=== PATIENT | male | born 1950 | race Caucasian/White ===

== ENCOUNTER 2017-12-30 11:15 | Observation (INO) | payer OTHER ==
--- OUTSIDE RECORDS SUMMARY | 2017-12-30 11:17 | XMS REPORT | Clinical Summary ---
:1950 Author Organization [facility] Address [address] [place] [address] Care Team Providers Name Role Phone Mg Starkey MD Primary Care Provider Allergies Active Allergy Reactions Severity Noted Date Comments Hydrocodone Itching Low 08/13/2016 Current Medications Prescription Sig. Disp. Refills Start Date End Date Status ALPRAZolam (XANAX) 0.5 MG Take 0.5 mg by Active tablet mouth nightly as needed for anxiety. rosuvastatin (CRESTOR) 10 Take 20 mg by Active MG tablet mouth daily. apixaban (ELIQUIS) 5 mg Take by mouth 2 Active tablet (two) times a day. tamsulosin (FLOMAX) 0.4 mg Take 0.4 mg by Active capsule,extended release mouth daily. 24hr cetirizine (ZyrTEC) 10 MG Chew 10 mg daily. Active chewable tablet montelukast (SINGULAIR) 10 Take 10 mg by Active mg tablet mouth nightly. zolpidem (AMBIEN) 10 mg Take 10 mg by Active tablet mouth nightly as needed for sleep. benzonatate (TESSALON) 200 Take 200 mg by Active MG capsule mouth 2 (two) times a day as needed for cough. fluticasone (FLONASE) 50 as needed. 06/16/2016 Active mcg/actuation nasal spray methylPREDNISolone (MEDROL as needed. 07/08/2016 Active DOSEPACK) 4 mg tablet ASPIRIN/ACETAMINOPHEN/CAFFE Take by mouth as Active INE (EXCEDRIN MIGRAINE needed. ORAL) sildenafil (VIAGRA) 50 MG Take 50 mg by Active tablet mouth as needed for erectile dysfunction. Active Problems Problem Noted Date Essential hypertension 08/13/2016 Pure hypercholesterolemia 08/13/2016 Hyperlipidemia, unspecified 08/12/2016 Atrial fibrillation 08/12/2016 Family History Medical History Relation Name Comments Heart attack Father Breast cancer Mother Heart attack Paternal Uncle Relation Name Status Comments Father Mother Paternal Uncle Social History Tobacco Use Types Packs/Day Years Used Date Never Smoker Smokeless Tobacco: Never Used Alcohol Use Drinks/Week oz/Week Comments Yes moderate Sex Assigned at Date Recorded Not on file Last Filed Vital Signs Not on file Plan of Treatment Health Maintenance Due Date Last Done Comments COLONOSCOPY 2000 SHINGRIX VACCINE (#1) 2000 ZOSTER VACCINE 2010 PNEUMOCOCCAL POLYSACCHARIDE VACCINE AGE 65 AND OVER 2015 PNEUMOCOCCAL-13 2015 INFLUENZA VACCINE 04/07/2018 Results Not on fileafter 12/29/2016 Insurance Payer Benefit Plan / Group Subscriber ID Type Phone Address MEDICARE MEDICARE PART A AND B xxxxxxxxxx Medicare [place], [place] AETNA AETNA HMO,POS,EPO, MC/EC xxxxxxxxxx HMO [phone] [address]
--- NOTE | 2017-12-30 12:05 | RAD REPORT ---
EXAM DESCRIPTION: CT - Ct Stroke Brain Wo Cont - 12/30/2017 11:55 am CLINICAL HISTORY: Blurred vision and right facial droop COMPARISON: September 2017 TECHNIQUE: Computed axial tomography of the head was obtained. IV contrast was not requested. All CT scans are performed using dose optimization technique as appropriate and may include automated exposure control or mA/KV adjustment according to patient size. FINDINGS: An intracranial bleed is not seen . The ventricles are normal in caliber. No extra-axial fluid collection is noted. Fluid within the sinuses/ mastoids is not seen. IMPRESSION: No acute intracranial abnormality is seen. If patient's symptoms persist MRI of the bra in would be recommended. The exam was discussed with Dr Lopez in the Emergency Room at approximately 11:50 a.m. on December 30 018
[2017-12-30 12:10] LABS: Absolute Lymphocytes (CBC) 1.2 K/uL (0.7-4.9); Absolute Monocytes 0.6 K/uL (0.1-1.3); Absolute Neutrophil 4.2 K/uL (1.8-8.0); Basophils % 1.3 % (0-1.3); Eosinophils % 1.5 % (0-4.4); Hematocrit 47.5 % (39.6-49.0); Lymphocytes % 19.3 % (15.3-44.8); MCH 32.5 pg (27.0-35.0); MCV 95.5 fL (80-100); MPV 9.1 fL (7.6-11.3); Monocytes % 9.4 % (3.3-12.3); RBC Red Blood Cell Count 4.97 M/uL (4.33-5.43)
[2017-12-30 12:18] LABS: Protime INR 1.03
--- NOTE | 2017-12-30 12:47 | RAD REPORT ---
EXAM DESCRIPTION: MRI - Brain Wo Cont - 12/30/2017 12:41 pm CLINICAL HISTORY: Blurred vision, CVA symptoms COMPARISON: CT head December 30 TECHNIQUE: Sagittal T1-weighted images were obtained along with axial PD, heavily T2-weighted and T2 -FLAIR images. Axial DWI and ADC mapping sequences were also obtained along with coronal heavily T2-w eighted images. FINDINGS: No intracranial hemorrhage, mass or acute infarction. There is no edema or shift of midlin e structures. No extra-axial fluid collections. Carlos-matter/white matter junction is preserved. Signa l voids are seen as a normal finding in the major intracranial vessels. Patient has minimal atrophy a nd very little identifiable chronic ischemic change. Ventricles are normal. No globe or orbital aileen nt acute finding seen. Mastoid air cells and paranasal sinuses are clear. IMPRESSION: No acute infarction changes present. No hemorrhage, mass or acute intracranial finding. Minimal atrophy and chronic ischemic change.
[2017-12-30] MEDS ORDERED: ASPIRIN 81 MG CHEWABLE TABLET ONE (13:13)
--- NOTE | 2017-12-30 13:15 | RAD REPORT ---
EXAM DESCRIPTION: RAD - Chest Single View - 12/30/2017 12:11 pm CLINICAL HISTORY: Code stroke chest film COMPARISON: September 16 TECHNIQUE: AP portable chest image was obtained 1146 hours . FINDINGS: No failure, infiltrate or mass. Lung markings are similar to the comparison. Heart and vas culature are normal. No measurable pleural effusion and no pneumothorax. No gross bony abnormality se en. No acute aortic findings suspected. IMPRESSION: No acute cardiopulmonary process. No significant change from comparison.
--- NOTE | 2017-12-30 13:37 | EKG ---
Test Date: 2017-12-30 Test Time: 11:54:30 Central Office Technician: LEI MEASUREMENT RESULTS: Intervals: Rate: 84 MN: 178 QRSD: 106 QT: 418 QTc: 493 [place]: P: 29 MN: 178 QRS: -25 T: 45 INTERPRETIVE STATEMENTS: Normal sinus rhythm Prolonged QT Abnormal ECG Compared to ECG 09/16/2017 14:02:02 Prolonged QT interval now present Left-axis deviation no longer present ST (T wave) deviation no longer present Electronically Signed On 12-30-17 13:36:51 CDT by Ric Hayden
[2017-12-30 13:39] LABS: Urine Blood TRACE (NEG); Urine Glucose NEGATIVE (NEG); Urine Protein NEGATIVE (NEG)
--- NOTE | 2017-12-30 14:06 | ER ---
Nurse's Notes [facility] Name: Chaz Lombardo Age: 67 yrs Sex: Male : 1950 Arrival Date: 12/30/2017 Time: 11:18 Bed 2 Private MD: Diagnosis: Altered mental status, unspecified;Facial weakness;Contusion of unspecified part of head Presentation: 12/30 11:24 Presenting complaint: Patient states: "I believe I may have fallen and hit my head 2 aj days ago because I have a knot on my head and my vision is blurred." Patient ambulated to triage with steady gait. Family member reports patient appears unsteady and has been slightly disoriented. Last seen normal on Thursday. 11:24 Method Of Arrival: Ambulatory aj 11:24 Acuity: ADAIR 2 aj 11:28 Transition of care: patient was not received from another setting of care. An acute aj neurological deficit is present. The patient has been moved to a treatment area. Onset of symptoms was December 28, 2017. Initial Sepsis Screen: Does the patient meet any 2 criteria? No. Patient's initial sepsis screen is negative. Does the patient have a suspected source of infection? No. Patient's initial sepsis screen is negative. Care prior to arrival: None. 12:57 Pre-hospital glucose is not applicable to this patient. Triage Assessment: 11:30 The onset of the patients symptoms was more than six hours ago. General: Appears in no aj apparent distress. comfortable, Behavior is cooperative, drowsy. Pain: Denies pain. Neuro: Level of Consciousness is awake, obeys commands, confused, Oriented to person, place, situation, Moves all extremities. Gait is unsteady, Speech is slurred, Facial symmetry appears normal, Reports blurred vision. Respiratory: Airway is patent Respiratory effort is even, unlabored, Respiratory pattern is regular, symmetrical. Derm: Skin is intact, is healthy with good turgor, Skin is pink, warm \\T\\ dry. normal. Stroke Activation: Symptom onset > 6 hours Physician: Stroke Attending; Name: ; Notified At: ; Arrived At: Physician: Chief Stroke Resident; Name: ; Notified At: ; Arrived At: Physician: Stroke Resident; Name: ; Notified At: ; Arrived At: Physician: ED Attending; Name: ; Notified At: ; Arrived At: Physician: ED Resident; Name: ; Notified At: ; Arrived At: Historical: - Allergies: 11:30 HYDROCODONE; aj - Home Meds: 11:30 Exforge 5-160 mg Oral tab 1 tab once daily [Active]; Crestor Oral [Active]; aspirin 81 aj mg Oral TbEC 1 tab once daily [Active]; - PMHx: 11:30 Anxiety; Diverticulitis; Hyperlipidemia; Hypertension; insomnia; aj - PSHx: 11:30 Abdominal SX; aj - Immunization history:: Adult Immunizations up to date. - Social history:: Smoking status: Patient/guardian denies using tobacco. - Family history:: not pertinent. - Hospitalizations: : No recent hospitalization is reported. Screenin:45 Abuse screen: Denies threats or abuse. Denies injuries from another. Nutritional hb screening: No deficits noted. Tuberculosis screening: No symptoms or risk factors identified. Fall Risk Total Ansari Fall Scale indicates Low Risk Score (25-44 pts). Fall prevention measures have been instituted. Side Rails Up X 2 Frequent Obs/Assesments occuring Family Present and informed to notify staff if they need to leave bedside As available Patient and Family Educated on Fall Prevention Program and strategies. Assessment: 11:31 Reassessment: Dr. Lopez at bedside. hb 11:36 Reassessment: BGL 94. hb 11:40 Reassessment: 18g RIGHT AC. hb 11:43 Reassessment: Code Stroke called, pt transported to CT via stretcher with JENNIFER Yip Rn. hb 11:43 T-PA (Activase) Screening: Indications: Definite evidence of stroke, ischemic, embolic, hb or hypertensive: Yes. Treatment will start within 4.5 hours onset of symptoms: No. Contraindications: Patient reports onset of signs and symptoms of stroke greater than 6 hours ago:. 11:50 General: Appears in no apparent distress. Behavior is calm, cooperative. Pain: Denies hb pain. Neuro: Level of Consciousness is awake, alert, obeys commands, Oriented to person, place, time, situation. Cardiovascular: Heart tones S1 S2 present Capillary refill < 3 seconds Patient's skin is warm and dry. Respiratory: Airway is patent Trachea midline Respiratory effort is even, unlabored, Respiratory pattern is regular, symmetrical, Breath sounds are clear bilaterally. GI: No signs and/or symptoms were reported involving the gastrointestinal system. : No signs and/or symptoms were reported regarding the genitourinary system. EENT: No signs and/or symptoms were reported regarding the EENT system. Derm: Skin is pink, warm \\T\\ dry. Musculoskeletal: No signs and/or symptoms reported regarding the musculoskeletal system. 12:45 Reassessment: Patient appears in no apparent distress at this time. No changes from previously documented assessment. Patient and/or family updated on plan of care and expected duration. Pain level reassessed. Patient is alert, oriented x 3, equal unlabored respirations, skin warm/dry/pink. 12:56 Patient has been NPO before screening. The patient is alert, and able to follow commands. The patient does not exhibit slurred or garbled speech. The patient is not exhibiting difficulty speaking. The patient does not exhibit difficulty understanding words. The patient is able to swallow own secretions with no drooling or need for suction. Patient tolerated one teaspoon of water. No drooling, immediate coughing, gurgling, or clearing of the throat was noted. The patient tolerated 90mL of water. No drooling, immediate coughing, gurgling, or clearing of the throat was noted. The patient passed the bedside swallow screening. Oral medications may be given as ordered. Contact Physician for further diet orders. Provider notified of bedside swallow screening results: John Lopez MD. 15:31 Reassessment: Renata EDGE needs more time to get report. sv 16:07 Reassessment: Chelle EDGE to call back for report. sv Vital Signs: 11:30 BP 160 / 105; Pulse 89; Resp 16; Temp 98.8; Pulse Ox 96% on R/A; Weight 120.2 kg; aj Height 6 ft. 2 in. (187.96 cm); Pain 0/10; 13:38 BP 147 / 85; Pulse 75; Resp 14; Pulse Ox 96% ; sv 15:24 BP 129 / 79; Pulse 86; Resp 16; Pulse Ox 99% ; sv 11:30 Body Mass Index 34.02 (120.20 kg, 187.96 cm) aj NIH Stroke Scale Scores: 11:43 NIHSS Score: 1 ED Course: 11:18 Patient arrived in ED. as 11:26 Triage completed. aj 11:29 John Lopez MD is Attending Physician. rn 11:30 Arm band placed on left wrist. Patient placed in an exam room. aj 11:40 Inserted saline lock: 18 gauge in right antecubital area, using aseptic technique. hb Blood collected. 11:43 Jenn Mccarty, RN is Primary Nurse. hb 11:45 Patient has correct armband on for positive identification. Placed in gown. Bed in low hb position. Call light in reach. Side rails up X 1. 11:55 CT Stroke Brain w/o Contrast In Process Unspecified. EDMS 11:58 EKG done, by photo optics technician. reviewed by John Lopez MD. at1 12:10 X-ray completed. Portable x-ray completed in exam room. Patient tolerated procedure jb2 well. 12:11 Stroke CXR 1 View In Process Unspecified. EDMS 12:15 Patient moved to MRI via stretcher. em2 12:23 Brain Wo Cont MRI In Process Unspecified. EDMS 14:05 Soren Green MD is Hospitalizing Provider. rn 16:25 No provider procedures requiring assistance completed. Patient admitted, IV remains in sv place. intact. Administered Medications: 13:26 Drug: Aspirin Chewable Tablet 324 mg Route: PO; hb 15:27 Follow up: Response: No adverse reaction sv Point of Care Testing: Blood Glucose: 11:36 Blood Glucose: 94 mg/dL; hb Ranges: Outcome: 14:05 Decision to Hospitalize by Provider. rn 16:25 Admitted to Tele accompanied by harjeet, family with patient, via wheelchair, room 409, sv with chart, Report called to Seven EDGE 16:25 Condition: stable 16:25 Instructed on the need for admit. 16:29 Patient left the ED. sv NIH Stroke Scale - NIH Stroke Score Date: 12/30/2017 Time: 11:43 Total Score = 1 1a. Level of Consciousness (LOC) - 0(Alert) 1b. Level of Consciousness (LOC) (Year \\T\\ Age) - 0(Both) 1c. LOC Commands (Open \\T\\ Closes Eyes/[employer]) - 0(Both) 2. Best Gaze (Lateral Gaze Paresis) - 0(Normal) 3. Visual Field Loss - 0(No visual loss) 4. Facial Palsy - 1(Minor Paralysis) 5a. Left Arm: Motor (10-second hold) - 0(No drift) 5b. Right Arm: Motor (10-second hold) - 0(No drift) 6a. Left Leg: Motor (5-second hold - always test supine) - 0(No drift) 6b. Right Leg: Motor (5-second hold - always test supine) - 0(No drift) 7. Limb Ataxia (finger/nose \\T\\ heel/sneed - test with eyes open) - 0(Absent) 8. Sensory Loss (pinprick arms/legs/face) - 0(Normal) 9. Best Language: Aphasia (description/naming/reading) - 0(No aphasia) 10. Dysarthria (speech clarity - read or repeat words) - 0(Normal) 11. Extinction and Inattention (visual/tactile/auditory/spatial/personal) - 0(No abnormality) Initials: hb Signatures: Dispatcher [employer] Alicia Funk RN RN sv Myers, Amanda, RN RN aj Buechter, Jesse jbMarga Jones Roman, MD MD rn Montes, Enrique em2 Rosangela prabhakar, nuclear reactor engineer EKG Tat1 Jenn Mccarty RN RN hb
--- NOTE | 2017-12-30 14:06 | EDPHYS ---
Physician Documentation [facility] Name: Chaz Lombardo Age: 67 yrs Sex: Male : 1950 Arrival Date: 12/30/2017 Time: 11:18 Bed 2 Private MD: ED Physician John Lopez HPI: 12/30 12:07 This 67 yrs old Male presents to ER via Ambulatory with complaints of Blurred rn Vision. 12:07 The patient presents with dizziness, feeling off balance. Onset: The symptoms/episode rn began/occurred yesterday. Associated signs and symptoms: Pertinent positives: ataxia, blurred vision, Pertinent negatives: abdominal pain, focal weakness, headache, seizure, shortness of breath, syncope, tingling, vomiting. Severity of symptoms: At their worst the symptoms were mild in the emergency department the symptoms are unchanged. The patient has not experienced similar symptoms in the past. Reports thinks hit his head recently, unsure when, reports dizziness, feels off balance, trouble remembering details, no vomiting/chest pain/abd pain. According to family, started sometime yesterday vs Thursday. . Historical: - Allergies: 11:30 HYDROCODONE; aj - Home Meds: 11:30 Exforge 5-160 mg Oral tab 1 tab once daily [Active]; Crestor Oral [Active]; aspirin 81 aj mg Oral TbEC 1 tab once daily [Active]; - PMHx: 11:30 Anxiety; Diverticulitis; Hyperlipidemia; Hypertension; insomnia; aj - PSHx: 11:30 Abdominal SX; aj - Immunization history:: Adult Immunizations up to date. - Social history:: Smoking status: Patient/guardian denies using tobacco. - Family history:: not pertinent. - Hospitalizations: : No recent hospitalization is reported. ROS: 12:07 Constitutional: Negative for fever, chills, and weight loss, Eyes: Negative for injury, rn pain, redness, and discharge, Neck: Negative for injury, pain, and swelling, Cardiovascular: Negative for chest pain, palpitations, and edema, Respiratory: Negative for shortness of breath, cough, wheezing, and pleuritic chest pain, Abdomen/GI: Negative for abdominal pain, nausea, vomiting, diarrhea, and constipation, Back: Negative for injury and pain, MS/Extremity: Negative for injury and deformity, Skin: Negative for injury, rash, and discoloration, Neuro: Negative for headache, numbness, tingling, and seizure. Exam: 12:07 Constitutional: This is a well developed, well nourished patient who is awake, alert, rn and in no acute distress. Head/Face: Normocephalic, atraumatic. Eyes: Pupils equal round and reactive to light, extra-ocular motions intact. Lids and lashes normal. Conjunctiva and sclera are non-icteric and not injected. Cornea within normal limits. Periorbital areas with no swelling, redness, or edema. ENT: Nares patent. No nasal discharge, no septal abnormalities noted. Oropharynx with no redness, swelling, or masses, exudates, or evidence of obstruction, uvula midline. Mucous membranes moist. Neck: Trachea midline, no thyromegaly or masses palpated, and no cervical lymphadenopathy. Supple, full range of motion without nuchal rigidity, or vertebral point tenderness. No Meningismus. Cardiovascular: Regular rate and rhythm with a normal S1 and S2. No gallops, murmurs, or rubs. Normal PMI, no JVD. No pulse deficits. Respiratory: Lungs have equal breath sounds bilaterally, clear to auscultation and percussion. No rales, rhonchi or wheezes noted. No increased work of breathing, no retractions or nasal flaring. Abdomen/GI: Soft, non-tender, with normal bowel sounds. No distension or tympany. No guarding or rebound. No evidence of tenderness throughout. MS/ Extremity: Pulses equal, no cyanosis. Neurovascular intact. Full, normal range of motion. Equal circumference. Neuro: Awake and alert, GCS 15, oriented to person, place, time. + mild right lower facial droop, upper face not involved. Motor strength 5/5 in all extremities. Sensory grossly intact. Cerebellar exam normal. Wide based gait, does not require assistance to walk. Vital Signs: 11:30 BP 160 / 105; Pulse 89; Resp 16; Temp 98.8; Pulse Ox 96% on R/A; Weight 120.2 kg; aj Height 6 ft. 2 in. (187.96 cm); Pain 0/10; 13:38 BP 147 / 85; Pulse 75; Resp 14; Pulse Ox 96% ; sv 15:24 BP 129 / 79; Pulse 86; Resp 16; Pulse Ox 99% ; sv 11:30 Body Mass Index 34.02 (120.20 kg, 187.96 cm) aj NIH Stroke Scale Scores: 11:43 NIHSS Score: 1 hb MDM: 11:29 Patient medically screened. rn 11:46 ED course: Family unsure of onset, patient reports thinks hit head yesterday or day rn before, there was a female with patient yesterday, family called her, she states was acting confused, had walking difficulty, and blurred vision yesterday. Not TPA candidate due to onset of symptoms yesterday, as well as trauma involved. . 11:50 ED course: NIH scale of 1 for right lower facial droop. . rn 14:04 Differential diagnosis: CVA, hypovolemia, idiopathic dizziness, TIA, xanax/ambien rn overdose, TIA. Data reviewed: vital signs, nurses notes, lab test result(s), EKG, radiologic studies, CT scan, MRI, and as a result, I will admit patient. Counseling: I had a detailed discussion with the patient and/or guardian regarding: the historical points, exam findings, and any diagnostic results supporting the discharge/admit diagnosis, lab results, radiology results, the need for further work-up and treatment in the hospital. Response to treatment: the patient's symptoms have mildly improved after treatment, and as a result, I will admit patient. Admission orders: after a detailed discussion of the patient's condition and case, the admit orders are written by me. 12/30 11:45 Order name: Troponin (emerg Dept Use Only); Complete Time: 13: 12/30 11:45 Order name: Basic Metabolic Panel; Complete Time: 13: 12/30 11:45 Order name: CBC with Diff; Complete Time: 12:11 12/30 11:45 Order name: Protime (+inr); Complete Time: 13:27 12/30 11:45 Order name: Ptt, Activated; Complete Time: 13:27 12/30 11:45 Order name: Urine Microscopic Only rn 12/30 11:45 Order name: CT Stroke Brain w/o Contrast; Complete Time: 12:11 12/30 11:45 Order name: Stroke CXR 1 View; Complete Time: 13:27 12/30 11:45 Order name: EKG; Complete Time: 11:46 rn 12/30 11:58 Order name: Brain Wo Cont MRI; Complete Time: 13:27 rn 12/30 13:24 Order name: Urine Dipstick--Ancillary (enter results) 2 12/30 13:46 Order name: Glucose, Ancillary Testing EDCA 12/30 11:45 Order name: Accucheck; Complete Time: 12:23 rn 12/30 11:45 Order name: Cardiac monitoring; Complete Time: 12: rn 12/30 11:45 Order name: EKG - Nurse/Tech; Complete Time: 12: rn 12/30 11:45 Order name: IV Saline Lock; Complete Time: 12: rn 12/30 11:45 Order name: Labs collected and sent; Complete Time: 12: rn 12/30 11:46 Order name: NPO; Complete Time: 12: rn 12/30 11:46 Order name: O2 Per Protocol; Complete Time: 12: rn 12/30 11:46 Order name: O2 Sat Monitoring; Complete Time: 12: rn 12/30 11:46 Order name: Stroke Swallow Screen; Complete Time: 12: rn 12/30 11:46 Order name: Urine Dipstick-Ancillary (obtain specimen); Complete Time: 14:22 rn Administered Medications: 13:26 Drug: Aspirin Chewable Tablet 324 mg Route: PO; hb 15:27 Follow up: Response: No adverse reaction sv Point of Care Testing: Blood Glucose: 11:36 Blood Glucose: 94 mg/dL; hb Ranges: Critical Glucose Levels:Adult <50 mg/dl or >400 mg/dl <40 mg/dl or >180 mg/dl Disposition: 12/30/17 14:05 Hospitalization ordered by Soren Green for Observation. Preliminary diagnosis are Altered mental status, unspecified, Facial weakness, Contusion of unspecified part of head. - Bed requested for Telemetry/MedSurg (observation). - Status is Observation. sv - Condition is Stable. - Problem is new. - Symptoms have improved. UTI on Admission? No NIH Stroke Scale - NIH Stroke Score Date: 12/30/2017 Time: 11:43 Total Score = 1 1a. Level of Consciousness (LOC) - 0(Alert) 1b. Level of Consciousness (LOC) (Year \T\ Age) - 0(Both) 1c. LOC Commands (Open \T\ Closes Eyes/Parts Cataloger) - 0(Both) 2. Best Gaze (Lateral Gaze Paresis) - 0(Normal) 3. Visual Field Loss - 0(No visual loss) 4. Facial Palsy - 1(Minor Paralysis) 5a. Left Arm: Motor (10-second hold) - 0(No drift) 5b. Right Arm: Motor (10-second hold) - 0(No drift) 6a. Left Leg: Motor (5-second hold - always test supine) - 0(No drift) 6b. Right Leg: Motor (5-second hold - always test supine) - 0(No drift) 7. Limb Ataxia (finger/nose \T\ heel/sneed - test with eyes open) - 0(Absent) 8. Sensory Loss (pinprick arms/legs/face) - 0(Normal) 9. Best Language: Aphasia (description/naming/reading) - 0(No aphasia) 10. Dysarthria (speech clarity - read or repeat words) - 0(Normal) 11. Extinction and Inattention (visual/tactile/auditory/spatial/personal) - 0(No abnormality) Initials: Signatures: Dispatcher [employer] EDMS Alicia Strauss RN Rosangela Ramírez RN RN aj Nieto, Roman, MD MD rn Baxter, Heather, RN RN hb Fitzgerald, Diane RN RN df Corrections: (The following items were deleted from the chart) 11:54 11:52 CT-STROKE BRAIN W/O CONTRAST+CT.RAD.BRZ ordered. EDMS EDMS
--- NOTE | 2017-12-30 15:00 | P.HP ---
Certification for Inpatient Patient admitted to: Observation With expected LOS: <2 Midnights Practitioner: I am a practitioner with admitting privileges, knowledge of patient current condition, hospital course, and medical plan of care. Services: Services provided to patient in accordance with Admission requirements found in Title 42 Section 412.3 of the Code of Federal Regulations Patient History Date of Service: 12/30/17 Reason for admission: acute encephalopathy History of Present Illness: Mr Lombardo is a 67 years old male with history of HTN, A.Fib s/p CV in the past , dyslipidemia, who according to his girlfriend, has been more confused for the last 4 days. He had a fall, and hit his head. He has a brise in his left forehead. Today he was complaining of blurred vision, dizziness, and he was more confused than yesterday. No history of fever or chills. He denied any extremity weakness or tingling. However, he has right facial drop with spare forehead. At my encounter he remain confused but cooperative. He had a similar episode 1 year ago. Allergies hydrocodone Allergy (Verified 09/16/17 21:04) Itching Home Medications: Acetaminophen [Pain Reliever] 500 mg PO PRN PRN 12/03/13 Alprazolam [Xanax*] 0.5 mg PO BID PRN 12/03/13 Ondansetron [Zofran (Odt)*] 4 mg PO Q6H PRN 12/03/13 Zolpidem Tartrate [Ambien*] 5 mg PO BEDTIME 12/03/13 Aspirin Tab [Reg Aspirin*] 325 mg PO DAILY #30 tab 12/06/13 Amlodipine/Valsartan [Exforge 5-160 mg Tablet] 1 tab PO DAILY 09/16/17 Montelukast [Singulair*] 1 tab PO DAILY 09/16/17 Rosuvastatin [Crestor*] 1 tab PO DAILY 09/16/17 Albuterol Sulfate [Proair Hfa] 8.5 gm IH TID PRN #1 hfa.aer.ad 09/17/17 Ciprofloxacin HCl [Cipro 500 MG Tablet] 500 mg PO BID #20 tab 09/17/17 Metronidazole [Flagyl] 500 mg PO Q8H #30 tablet 09/17/17 - Past Medical/Surgical History Diabetic: No -: HTN -: History of diverticulitis -: 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 He has 2 children. He is retired. - Family History Father -: Heart disease Mother -: Heart disease, Cancer - Social History Smoking Status: Never smoker Alcohol use: Yes CD- Drugs: No Caffeine use: Yes Physical Examination - Physical Exam General: Alert, In no apparent distress, Oriented x1 HEENT: Atraumatic, PERRLA, Mucous membr. moist/pink, EOMI, Sclerae nonicteric Neck: Supple, 2+ carotid pulse no bruit, No LAD, Without JVD or thyroid abnormality Respiratory: Clear to auscultation bilaterally, Normal air movement Cardiovascular: Regular rate/rhythm, Normal S1 S2 Gastrointestinal: Normal bowel sounds, No tenderness Musculoskeletal: No tenderness Integumentary: No rashes Neurological: Normal speech, Normal strength at 5/5 x4 extr, Normal tone, Normal affect Lymphatics: No axilla or inguinal lymphadenopathy - Studies Laboratory Data (last 24 hrs) 12/30/17 11:40: PT 12.2, INR 1.03, APTT 27.4 12/30/17 11:40: WBC 6.1, Hgb 16.2, Hct 47.5, Plt Count 230 12/30/17 11:40: Sodium 138, Potassium 4.0, BUN 10, Creatinine 0.98, Glucose 109 Assessment and Plan - Problems (Diagnosis) (1) Acute encephalopathy Current Visit: Yes Status: Acute (2) Atrial fibrillation Onset Date: 09/17/17 Current Visit: No Status: Chronic Qualifiers: Atrial fibrillation type: paroxysmal Qualified Code(s): I48.0 - Paroxysmal atrial fibrillation (3) History of TIA (transient ischemic attack) Current Visit: No Status: Chronic (4) Hyperlipidemia Onset Date: 09/17/17 Current Visit: No Status: Chronic Qualifiers: Hyperlipidemia type: unspecified Qualified Code(s): E78.5 - Hyperlipidemia , unspecified (5) Hypertension Onset Date: 09/17/17 Current Visit: No Status: Chronic Qualifiers: Hypertension type: essential hypertension Qualified Code(s): I10 - Essential (primary) hypertension - Plan Mr Lombardo will be admitted to the hospital due to acute encephalopathy, he is confused. Also right facial drop, which seems to be slightly better over the time. CT head and brain MRI showed no acute abnormalities. Differential diagnosis include TIA, seizure disorder. Will order ECHO, carotid doppler, consult Neurology. - Advance Directives Does patient have a Living Will: Yes Does patient have a Durable POA for Healthcare: Yes - Code Status/Comfort Care Code Status Assessed: Yes Code Status: Full Code
[2017-12-30 17:12] LABS: Urine Blood NEGATIVE (NEG); Urine Glucose NEGATIVE (NEG); Urine Protein NEGATIVE (NEG)
[2017-12-30 17:13] VITALS: BMI 34.0
[2017-12-30 17:20] LABS: Urine Bacteria <20 /HPF (NONE SEEN); Urine Culture Reflex Order NOT NEEDED; Urine Mucus NS /HPF (NONE SEEN); Urine RBC <5 /HPF (NONE SEEN)
[2017-12-30] MEDS: ENOXAPARIN 40 MG/0.4 ML SQ SCH (18:12)
--- NOTE | 2017-12-30 19:43 | RAD REPORT ---
EXAM DESCRIPTION: VASCarotid Artery Bilateral12/30/2017 7:27 pm CLINICAL HISTORY: TIA COMPARISON: 2013 FINDINGS: The velocity of the right internal carotid artery equals 35 cm/sec. The right ICA/CCA rati o 0.4 The velocity of the left internal carotid artery equals 31 cm/sec. The left ICA/CCA ratio 0.6 Mild plaque is present within the carotid arteries. The vertebral arteries demonstrate antegrade flow IMPRESSION: Mild plaque within the carotid arteries without evidence of a hemodynamically significan t stenosis
[2017-12-30] MEDS: ACETAMINOPHEN 500 MG TAB PO PRN (19:57)
[2017-12-30] MEDS ORDERED: METOPROLOL TAR 50 MG TAB PO ONE (21:00)
[2017-12-30] MEDS: TEMAZEPAM 15 MG CAP PO PRN (21:32)
[2017-12-30 23:31] LABS: Barbiturates NEGATIVE; Benzodiazepines POSITIVE; Cocaine NEGATIVE; METHAMPHETAM NEGATIVE; Opiates NEGATIVE; Phencyclidine NEGATIVE; THC Cannibis NEGATIVE
[2017-12-31] MEDS: ACETAMINOPHEN 500 MG TAB PO PRN ×3 (00:22→18:34)
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
[2017-12-31] MEDS ORDERED: LORazepam 2 MG/ML VIAL IV ONE (01:18)
[2017-12-31 05:05] LABS: RPR Titer ND
[2017-12-31 05:08] LABS: Absolute Lymphocytes (CBC) 1.3 K/uL (0.7-4.9); Absolute Monocytes 0.6 K/uL (0.1-1.3); Absolute Neutrophil 3.5 K/uL (1.8-8.0); Basophils % 1.4 % (0-1.3); Eosinophils % 2.4 % (0-4.4); Hematocrit 46.6 % (39.6-49.0); Lymphocytes % 23.4 % (15.3-44.8); MCH 32.1 pg (27.0-35.0); MCV 95.2 fL (80-100); MPV 8.4 fL (7.6-11.3); Monocytes % 10.9 % (3.3-12.3); RBC Red Blood Cell Count 4.89 M/uL (4.33-5.43)
[2017-12-31 05:42] LABS: Potassium 3.8 mEq/L (3.6-5.0)
[2017-12-31] MEDS: METOPROLOL TAR 50 MG TAB PO SCH ×2 (08:17→21:52)
[2017-12-31] MEDS: CLOPIDOGREL 75 MG TABLET PO SCH (08:18)
[2017-12-31] MEDS: ENOXAPARIN 40 MG/0.4 ML SQ SCH (08:19)
[2017-12-31 08:37] LABS: Thyroid Stimulating Hormone 4.05 uIU/mL (0.34-5.60)
[2017-12-31] MEDS: ONDANSETRON 4 MG/2 ML VIAL IV PRN ×2 (09:26→14:28)
[2017-12-31 10:09] VITALS: O2SAT 96
--- NOTE | 2017-12-31 13:57 | P.PN ---
Subjective Date of Service: 12/31/17 Chief Complaint: acute encephalopathy He is still confuse, and has memory problems. Physical Examination - Vital Signs Temperature: 98.4 F Blood Pressure: 152/83 Pulse: 61 Respirations: 16 Pulse Ox (%): 95 - Physical Exam General: Alert, In no apparent distress HEENT: Atraumatic, PERRLA, EOMI Cardiovascular: Regular rate/rhythm, Normal S1 S2 Gastrointestinal: Normal bowel sounds, No tenderness Musculoskeletal: No tenderness Integumentary: No rashes Neurological: Normal speech, Normal tone, Normal affect Assessment And Plan - Current Problems (Diagnosis) (1) Acute encephalopathy Onset Date: 12/31/17 Current Visit: Yes Status: Acute (2) Atrial fibrillation Onset Date: 09/17/17 Current Visit: No Status: Chronic Qualifiers: Atrial fibrillation type: paroxysmal Qualified Code(s): I48.0 - Paroxysmal atrial fibrillation (3) History of TIA (transient ischemic attack) Current Visit: No Status: Chronic (4) Hyperlipidemia Onset Date: 09/17/17 Current Visit: No Status: Chronic Qualifiers: Hyperlipidemia type: unspecified Qualified Code(s): E78.5 - Hyperlipidemia , unspecified (5) Hypertension Onset Date: 09/17/17 Current Visit: No Status: Chronic Qualifiers: Hypertension type: essential hypertension Qualified Code(s): I10 - Essential (primary) hypertension - Plan #1 acute encephalopathy: MRI brain shows no acute abnormalities, carotid doppler negative, ECHO pending. He is still confused. He has no fever, WBC within normal limits, no headache, no blurred vision, no obvious signs of infection. TSH normal. He was evaluated by Dr Pickett yesterday, he has recommended to do an EEG today, check B12 and drug screen. #2 HTN: BP is mostly well controlled, but has episodes of hypertension. Continue metoprolol, will add hydralazine IV PRN.
[2017-12-31] MEDS ORDERED: HYDRALAZINE HCL 20 MG/ML VIAL IV PRN (14:00)
[2017-12-31] MEDS ORDERED: ONDANSETRON 4 MG/2 ML VIAL IV PRN (14:36)
--- NOTE | 2017-12-31 16:51 | ECHO ---
HEIGHT: 6 ft 2 in WEIGHT: 265 lb 0 oz DATE OF STUDY: 12/31/[address]: Soren Craig MD 2-DIMENSIONAL: YES M.MODE: YES DOPPLER: YES COLOR FLOW: YES TDS: PORTABLE: DEFINITY: BUBBLE STUDY: DIAGNOSIS: TRANSIENT ISCHEMIC ATTACK CARDIAC HISTORY: CATHERIZATION: NO SURGERY: NO PROSTHETIC VALVE: NO PACEMAKER: NO MEASUREMENTS (cm) DIASTOLIC (NORMALS) SYSTOLIC (NORMALS) IVSd 1.1 (0.6-1.2) LA Diam 3.4 (1.9-4.0) LVEF 56% LVIDd 5.5 (3.5-5.7) LVIDs 3.9 (2.0-3.5) %FS 30% LVPWd 1.0 (0.6-1.2) Ao Diam 3.9 (2.0-3.7) 2 DIMENSIONAL ASSESSMENT: RIGHT ATRIUM: NORMAL LEFT ATRIUM: NORMAL RIGHT VENTRICLE: NORMAL LEFT VENTRICLE: NORMAL TRICUSPID VALVE: NORMAL MITRAL VALVE: NORMAL PULMONIC VALVE: NORMAL AORTIC VALVE: NORMAL PERICARDIAL EFFUSION: NONE AORTIC ROOT: NORMAL LEFT VENTRICULAR WALL MOTION: DOPPLER/COLOR FLOW: NORMAL COMMENTS: NORMAL 2-DIMENSIONAL ECHOCARDIOGRAM WITH DOPPLER. NO CLOT. NO VEGETATION. TECHNOLOGIST: HERVE CLARKE
[2017-12-31] MEDS: CARBAMAZEPINE 200 MG TAB PO SCH (21:52)
[2017-12-31] MEDS: TEMAZEPAM 15 MG CAP PO PRN (22:38)
[2017-12-31 23:05] LABS: RPR (Rapid Plasma Reagin) NON-REACT (NON-REACT)
--- NOTE | 2018-01-01 00:48 | PN ---
Date of Progress Note: 12/31/2017 Time: 193. Reason: Confusion. Interval History: The patient had several more confusional episodes today. EEG was normal. Additio nal labs were normal. Thiamine level is pending. Review of the intermediate EEG that he had as outpati ent quite recently however does reveal some sharp waves, primarily in the left temporal region, on re view of the report. With the increase in sharp waves during sleep, sometimes that is seen as a sonny l variant in somewhat older patients, but I think given the recurrent confusional episodes as well as family now revealed the patient had a history of seizures when he was an adolescent and teenager, pr udent to go ahead and treat him for complex partial seizures, which would certainly explain the overa ll symptom complex. Physical Examination: He is afebrile. Vitals are stable. He is awake, alert, oriented. Pupils reactive. Ocular motion f ull. Echols full. Face is symmetric. Tongue midline. Soft palate elevates bilaterally. Extremity strength full. Sensation intact. Reflexes trace. Toes are downgoing. No [id number] ataxi a. Impression: Complex partial seizures. Plan: Start Tegretol therapy. Additional labs have been unrevealing. Drug screen was positive for benzodiazepines, but Xanax is on e of the patient's chronic outpatient medications. I think certainly the patient should stay at [facility] t 1 more night in the hospital given that we are initiating a new medication. We will continue to follow with you. TATIANA Voice ID: [id number] Report ID: [id number]
[2018-01-01] MEDS: ACETAMINOPHEN 500 MG TAB PO PRN ×2 (01:31→15:02)
[2018-01-01] MEDS ORDERED: LORazepam 2 MG/ML VIAL IV ONE (02:21)
[2018-01-01] MEDS ORDERED: ALPRAZOLAM 0.5 MG TABLET PO PRN (08:09)
[2018-01-01] MEDS: METOPROLOL TAR 50 MG TAB PO SCH (08:43)
[2018-01-01] MEDS: CLOPIDOGREL 75 MG TABLET PO SCH (08:44)
[2018-01-01] MEDS: ENOXAPARIN 40 MG/0.4 ML SQ SCH (08:44)
[2018-01-01] MEDS: CARBAMAZEPINE 200 MG TAB PO SCH ×2 (08:44→15:02)
[2018-01-01] MEDS ORDERED: THIAMINE 200 MG/2 ML INJ IVP SCH (09:00)
[2018-01-01 12:34] VITALS: BP 145/84; TEMP 98.1
--- NOTE | 2018-01-01 13:46 | EEG ---
CHART: [id number] TEST ID#: [id number] DATE OF STUDY: 12/31/2017 THE EEG WAS RECORDED PORTABLE IN THE PATIENT'S ROOM ON A 17 CHANNEL MACHINE. ELECTRODES WERE APPLIED IN THE USUAL MANNER USING THE INTERNATIONAL 10-20 SYSTEM. THE WAKING BACKGROUND RHYTHM IN THIS RECORD CONSISTS OF FAIRLY WELL DEVELOPED AND FAIRLY WELL ORGANIZED WAVES OF 9 HZ., MAXIMAL IN THE POSTERIOR HEAD REGIONS WHICH ATTENUATE NORMALLY WITH EYE OPENING. THERE ARE NO FOCAL OR LATERALIZING FEATURES. NO EPILEPTIFORM ACTIVITY APPEARS. SLEEP DID NOT OCCUR. HYPERVENTILATION WAS PERFORMED FAIRLY WELL AND PRODUCED NO SIGNIFICANT CHANGE. PHOTIC STIMULATION PRODUCED FAIR DRIVING BILATERALLY. IMPRESSION: ABNORMAL EEG BECAUSE OF GENERALIZED SLOWING OF THE BACKGROUND. THE ABOVE SUGGESTS DIFFUSE CEREBRAL DYSFUNCTION.
--- NOTE | 2018-01-01 18:31 | P.DS ---
Admission Date: 12/30/17 Discharge Date: 01/01/18 Primary Care Provider: Dr. Alvarez Disposition: ROUTINE DISCHARGE Discharge Condition: GOOD Reason for Admission: acute encephalopathy Consultations: Neurology-Dr. Pickett Procedures: Brain MRI: No acute stroke noted. Carotid Doppler: No acute stenosis noted. Echocardiogram: Ejection fraction within normal range. - Problems (1) Complex partial epilepsy Status: Acute Qualifiers: Epilepsy type: partial symptomatic Intractability: not intractable Status epilepticus: without status epilepticus Qualified Code(s): G40.209 - Localization-related (focal) (partial) symptomatic epilepsy and epileptic syndromes with complex partial seizures, not intractable, without status epilepticus (2) Acute encephalopathy Onset Date: 12/31/17 Status: Acute (3) Atrial fibrillation Onset Date: 09/17/17 Status: Chronic Qualifiers: Atrial fibrillation type: paroxysmal Qualified Code(s): I48.0 - Paroxysmal atrial fibrillation (4) History of TIA (transient ischemic attack) Status: Chronic (5) Hyperlipidemia Onset Date: 09/17/17 Status: Chronic Qualifiers: Hyperlipidemia type: unspecified Qualified Code(s): E78.5 - Hyperlipidemia , unspecified (6) Hypertension Onset Date: 09/17/17 Status: Chronic Qualifiers: Hypertension type: essential hypertension Qualified Code(s): I10 - Essential (primary) hypertension (7) Insomnia Status: Chronic Qualifiers: Insomnia type: unspecified Qualified Code(s): G47.00 - Insomnia, unspecified (8) Depression Status: Chronic Qualifiers: Depression Type: unspecified Qualified Code(s): F32.9 - Major depressive disorder, single episode, unspecified (9) Chronic pain Status: Chronic Qualifiers: Chronic pain type: chronic pain syndrome Qualified Code(s): G89.4 - Chronic pain syndrome (10) B12 deficiency Status: Acute Brief History of Present Illness: 67-year-old male with history of TIA, paroxysmal atrial fibrillation, hypertension presented to emergency room with confusion. This had been present for several days. Patient also reported some facial droopiness. The patient was evaluate in the emergency room and admitted for further evaluation. Hospital Course: Patient presented with confusion. Patient was evaluated by neurology. MRI brain showed no acute stroke. Carotid Doppler showed no acute stenosis. Echocardiogram was unremarkable. Acute encephalopathy likely related to underlying complex partial seizure. Patient was started on medication. At discharge patient will continue with Tegretol 200 mg 1 pill 3 times a day. Recommendation is to recheck Tegretol level in 1 week. Recommendation on no driving, swimming, or working on heavy machinery. Education on seizures will be provided. Recommendation is for the patient to follow with neurology in 1-2 weeks to follow up this hospitalization. Patient with history of hypertension. Medications were adjusted during the course of his stay. He will no longer take Exforge. New medications include metoprolol 50 mg 1 pill twice daily and losartan 50 mg 1 pill daily. Recommendation is to maintain blood pressures less 150/80. Further adjustment can be done by his PCP. Patient with history of atrial fibrillation. At discharge patient will continue with aspirin 325 mg 1 pill once daily. Patient will continue with metoprolol as recommended above. Recommendations for the patient follow up with cardiology in 2-4 weeks to follow up this hospitalization and continue his care. Patient has chronic pain. Patient will continue with Neurontin as directed. Recommendation is to discontinue tramadol. Patient with history of depression with anxiety. Patient will continue with Celexa 20 mg 1 pill daily. Recommendation is for the patient follow up with psychiatry as an outpatient to further monitor and address. Patient also using Xanax as needed for anxiety. Ambien has been discontinued. Patient has hyperlipidemia. Patient will be started on Lipitor 40 mg 1 pill once daily. Recommendation is to recheck lipid panel in 4 weeks to monitor his progress. Patient with history of TIA. Patient will continue with aspirin 325 mg 1 pill once daily. Patient found to have B12 deficiency. At discharge patient will continue with B12 vitamin 1000 mcg daily. Recommendation is to recheck B12 level in 1 month to monitor his progress. Vital Signs/Physical Exam: Temp Pulse Resp BP Pulse Ox 98.1 F 62 18 145/84 H 95 01/01/18 12:00 01/01/18 12:00 01/01/18 12:00 01/01/18 12:00 01/01/18 12:00 General: Alert, In no apparent distress, Oriented x3, Cooperative HEENT: Atraumatic, Mucous membr. moist/pink Neck: Supple, No Thyromegaly Respiratory: Clear to auscultation bilaterally Cardiovascular: Normal pulses, Regular rate/rhythm Gastrointestinal: Normal bowel sounds, Soft and benign, Non-distended, No tenderness, No masses, No rebound, No guarding Musculoskeletal: No erythema, No tenderness, No warmth Integumentary: No tenderness/swelling, No erythema, No warmth, No cyanosis Neurological: Normal speech, Normal strength at 5/5 x4 extr, Normal tone, Normal affect Laboratory Data at Discharge: WBC 5.7 K/uL (4.3-10.9) 12/31/17 04:56 Hgb 15.7 g/dL (13.6-17.9) 12/31/17 04:56 Hct 46.6 % (39.6-49.0) 12/31/17 04:56 Plt Count 239 K/uL (152-406) 12/31/17 04:56 PT 12.2 SECONDS (9.5-12.5) 12/30/17 11:40 INR 1.03 12/30/17 11:40 APTT 27.4 SECONDS (24.3-36.9) 12/30/17 11:40 Sodium 138 mEq/L (135-145) 12/31/17 04:56 Potassium 3.8 mEq/L (3.6-5.0) 12/31/17 04:56 BUN 11 mg/dL (6-20) 12/31/17 04:56 Creatinine 0.91 mg/dL (0.61-1.24) 12/31/17 04:56 Glucose 105 mg/dL (65-120) 12/31/17 04:56 Triglycerides 145 mg/dL (35-160) 12/31/17 04:56 Cholesterol 276 mg/dL (<200) H 12/31/17 04:56 HDL Cholesterol 43 mg/dL (27-67) 12/31/17 04:56 Cholesterol/HDL Ratio 6.42 12/31/17 04:56 Home Medications: Acetaminophen [Pain Reliever] 500 mg PO PRN PRN 12/03/13 Aspirin Tab [Reg Aspirin*] 325 mg PO DAILY #30 tab 12/06/13 Montelukast [Singulair*] 1 tab PO DAILY 09/16/17 Albuterol Sulfate [Proair Hfa] 8.5 gm IH TID PRN #1 hfa.aer.ad 09/17/17 Alprazolam [Xanax*] 0.5 mg PO BID PRN 12/30/17 Citalopram [Celexa*] 20 mg PO DAILY 12/30/17 Gabapentin [Neurontin*] 100 mg PO BID 12/30/17 Atorvastatin Calcium [Lipitor] 40 mg PO DAILY #30 tablet 01/01/18 Carbamazepine [Tegretol*] 200 mg PO TID #90 tab 01/01/18 Cyanocobalamin (Vitamin B-12) [Vitamin B-12] 1,000 mcg PO DAILY #90 tablet 01/01 Losartan Potassium 50 mg PO DAILY #30 tablet 01/01/18 Metoprolol Tartrate [Lopressor*] 50 mg PO BID #60 tab 01/01/18 New Medications: Atorvastatin Calcium [Lipitor] 40 mg PO DAILY #30 tablet Carbamazepine [Tegretol*] 200 mg PO TID #90 tab Cyanocobalamin (Vitamin B-12) [Vitamin B-12] 1,000 mcg PO DAILY #90 tablet Losartan Potassium 50 mg PO DAILY #30 tablet Metoprolol Tartrate [Lopressor*] 50 mg PO BID #60 tab Patient Discharge Instructions: 1. Patient will need a follow up in 1 week with his PCP to follow up this hospitalization. 2. Patient presented with confusion. Patient with complex partial seizures. At discharge patient will continue with Tegretol 200 mg 1 pill 3 times a day. Recommendation is to recheck Tegretol level in 1 week. Recommendation on no driving, swimming, or working on heavy machinery. Education on seizures will be provided. Recommendation is for the patient to follow with neurology in 1-2 weeks to follow up this hospitalization. 3. Patient with history of hypertension. Medications have been adjusted. He will no longer take Exforge. New medications include metoprolol 50 mg 1 pill twice daily and losartan 50 mg 1 pill daily. Recommendation is to maintain blood pressures less 150/80. Further adjustment can be done by his PCP. 4. Patient with history of atrial fibrillation. At discharge patient will continue with aspirin 325 mg 1 pill once daily. Patient will continue with metoprolol as recommended above. Recommendations for the patient follow up with cardiology in 2-4 weeks to follow up this hospitalization and continue his care. 5. Patient has chronic pain. Patient will continue with Neurontin as directed. Recommendation is to discontinue tramadol. 6. Patient with history of depression with anxiety. Patient will continue with Celexa 20 mg 1 pill daily. Recommendation is for the patient follow up with psychiatry as an outpatient to further monitor and address. Patient also using Xanax as needed for anxiety. Ambien has been discontinued. 6. Patient has hyperlipidemia. Patient will be started on Lipitor 40 mg 1 pill once daily. Recommendation is to recheck lipid panel in 4 weeks to monitor his progress. 7. Patient with history of TIA. Patient will continue with aspirin 325 mg 1 pill once daily. 8. Patient found to have B12 deficiency. At discharge patient will continue with B12 vitamin 1000 mcg daily. Recommendation is to recheck B12 level in 1 month to monitor his progress. Diet: AHA Activity: Fall precautions Time spent managing pt's care (in minutes): 55
== END 2018-01-01 17:14 | disposition home or self-care (01) ==
LOC: ER 11:15 → ERHOLD 14:06 → 4TH 16:26
PROVIDERS: ADMIT Internal Medicine; ATTEND Internal Medicine
DX: G40.209 Localization-related (focal) (partial) symptomatic epilepsy and epileptic syndromes with complex partial seizures, not intractable, without status epilepticus (principal); G93.40 Encephalopathy, unspecified; I48.0 Paroxysmal atrial fibrillation; Z86.73 Personal history of transient ischemic attack (TIA), and cerebral infarction without residual deficits; E78.5 Hyperlipidemia, unspecified; I10 Essential (primary) hypertension; G47.00 Insomnia, unspecified; F32.9 Major depressive disorder, single episode, unspecified; G89.29 Other chronic pain; E53.8 Deficiency of other specified B group vitamins
CPT/HCPCS: 36415 ×2; 70450; 70551; 71045; 80048 ×2; 80061; 80156; 80307 ×9; 82607; 82962; 84443; 84484; 85025 ×2; 85610; 85652; 85730; 86592; 93005; 93306; 93880; 95819; 97163; 99285; G0378 ×2; J1650 ×2; J2405 ×3; 81003; 81015; J3411